=== PATIENT | female | born 1995 | race Caucasian/White ===

== ENCOUNTER 2020-11-16 17:27 | Emergency (ER) | payer BC ==
--- OUTSIDE RECORDS SUMMARY | 2020-11-16 17:29 | XMS REPORT | Continuity of Care Document ---
:1995 Author Organization [facility] t Address [address] [place] [address] Care Team Providers Name Role Phone Unavailable Unavailable Unavailable Payers Payer Name Policy Type Policy Number Effective Date Expiration Date S ource Problems This patient has no known problems. Allergies, Adverse Reactions, Alerts Allergy Allergy Status Severity Reaction(s) Onset Inactive Treating Comm ents Source Name Type Date Date Clinician No Known DA Active [facility] [place] Medications This patient has no known medications. Procedures This patient has no known procedures. Results Test Description Test Time Test Comments Results Result Comments Source HGB HCT 2019-02-03 15:58:00 Test Item Value Reference Range Interpretation Comme nts HEMOGLOBIN (test code = HGB) 8.0 g/dL 10.7-13.9 L HEMATOCRIT (test code = HCT) 26.0 % 32.1-42.1 L AG HEPATITIS B [id number] 23:03:00 Test Item Value Reference Range Interpretation Comments AG HEPATITIS B SURFACE (test code NONREACTIVE NONREACTIVE = HBSAG) IS CONSENT FORM SIGNED FOR HIV TESTING? YAB HEPATITIS C [id number] 23:03:00 Test Item Value Reference Range Interpretation Comments AB HEPATITIS C (test code = NONREACTIVE NONREACTIVE HCVAB) SIGNAL TO CUTOFF (test code = 0.10 <0.80 N CUTOFF) IS CONSENT FORM SIGNED FOR HIV TESTING? YAB [id number] 23:03:00 Test Item Value Reference Range Interpretation Comments AB TREPONEMA (test code = TREPAB) NONREACTIVE NONREACTIVE IS CONSENT FORM SIGNED FOR HIV TESTING? YAB HIV 1 23:03:00 Test Item Value Reference Range Interpretation Comments AB HIV 1 2 (test NONREACTIVE NONREACTIVE Done by Luis F Mckee code = [id number]) 4th Gen HIV Ag/Ab Combo Screen IS CONSENT FORM SIGNED FOR HIV TESTING? YAG HEPATITIS B [id number] 22:34:00 Test Item Value Reference Range Interpretation Comments AG HEPATITIS B SURFACE (test code NONREACTIVE NONREACTIVE = HBSAG) IS CONSENT FORM SIGNED FOR HIV TESTING? YAB HEPATITIS C [id number] 22:34:00 Test Item Value Reference Range Interpretation Comments AB HEPATITIS C (test code = HCVAB) NONREACTIVE SIGNAL TO CUTOFF (test code = CUTOFF) <0.80 IS CONSENT FORM SIGNED FOR HIV TESTING? YAB [id number] 22:34:00 Test Item Value Reference Range Interpretation Comments AB TREPONEMA (test code = TREPAB) NONREACTIVE NONREACTIVE IS CONSENT FORM SIGNED FOR HIV TESTING? YAB HIV 1 22:34:00 Test Item Value Reference Range Interpretation Comments AB HIV 1 2 (test code = [id number]) NONREACTIVE IS CONSENT FORM SIGNED FOR HIV TESTING? YCBC W/AUTO [id number] 21:53:00 Test Item Value Reference Range Interpretation Comments WHITE BLOOD CELL (test code = WBC) 12.4 K/mm3 6.6-12.1 H RED BLOOD CELL (test code = RBC) 3.78 M/mm3 3.45-5.01 N HEMOGLOBIN (test code = HGB) 9.8 g/dL 10.7-13.9 L HEMATOCRIT (test code = HCT) 31.1 % 32.1-42.1 L MEAN CELL VOLUME (test code = MCV) 82 fL 84.1-94.8 L MEAN CELL HGB (test code = MCH) 25.9 pg 27-35 L MEAN CELL HGB CONCETRATION (test 31.5 gm/dL 32.2-34.1 L code = MCHC) RED CELL DISTRIBUTION WIDTH (test 12.8 % 12.4-16.5 N code = RDW) PLATELET COUNT (test code = PLT) 266 K/mm3 133-385 N IMMATURE PLATELET FRACTION (test 0.0 % 0.0-10.8 N code = IPF) MEAN PLATELET VOLUME (test code = 10.3 fl 9.1-12.7 N MPV) NEUTROPHIL % (test code = NT%) 69.2 % 56.5-79.4 N LYMPHOCYTE % (test code = LY%) 19.1 % 14.3-34.3 N MONOCYTE % (test code = MO%) 8.3 % 5.1-10.4 N EOSINOPHIL % (test code = EO%) 1.0 % 0.1-3.0 N BASOPHIL % (test code = BA%) 0.5 % 0.1-1.0 N NEUTROPHIL # (test code = NT#) 8.6 K/mm3 LYMPHOCYTE # (test code = LY#) 2.4 K/mm3 MONOCYTE # (test code = MO#) 1.0 K/mm3 EOSINOPHIL # (test code = EO#) 0.13 K/mm3 BASOPHIL # (test code = BA#) 0.1 K/mm3 RBC MORPHOLOGY REQUIRED (test code NORMAL NORMAL = RBCM) PLATELET MORPHOLOGY REQUIRED (test NORMAL NORMAL code = PLTMR) PRODUCTS OF [id number] 13:14:00 RUN DATE: 12/24/17 [facility] PAGE 1 RUN TIME: 1320 Specimen Inquiry RUN USER: INTERFACE PATIENT: NESHA MOODY LOC: [facility] U #: [id number] AGE/SX: 22/ ROOM: [facility] RE/18/18REG DR: Mandi Grossman : [birth year] BED: A DIS: 12/22/17 STATUS: DIS IN TLOC: SPEC #: [id number] RECD: 12/21/17 STATUS: DOM REQ #: [id number] HOLLY: 12/21/17- SUBM DR: Mandi Grossman MD ENTERED: 12/22/17 SP TYPE: POC[ OTHR DR: ORDERED: LEVEL IV CODES: [id number] - ENDOMETRIUM, NO PROCEDURES: LEVEL IV (Incomplete) TISSUES: ENDOMETRIUM, NOS - POC CLINICAL HISTORY 22 year old, retained products of conception (kr) FINAL DIAGNOSIS Uterus, specimen labeled "retained products of conception": - no chorionic villi identified - inflamed necrotic decidual tissue with inflamed fibrotic endometrial tissue - blood clot Tissue code 1 CPT code(s): 40580 f/wpd 12/05 04/22 @ 1313 GROSS DESCRIPTION The specimen is received in a suction canister, labeled withthe patient's name and designated "retained products of conception" consists of hemorrhagic, curetted material. Inspector Final Assembly Mechanical sections are submitted and labeled A and B. Multiple additional sections are submitted labeled RE1-RE3. [facility]/evelio 12/22/17 @ 1126 MICROSCOPIC DESCRIPTION The tissue shows necrotic decidual tissue and inflamed somewhat fibrotic endometrial tissue with background of blood clot. No chorionic villi are identified. f/wpd 12/24/17 @ 1313 Signed Norbert OdenSloan 12/24/17 1314 END OF REPORT
--- NOTE | 2020-11-17 00:54 | ER ---
Nurse's Notes [facility] Name: Adelina Velez Age: 24 yrs Sex: Female : 1995 Arrival Date: 11/16/2020 Time: 17:30 Bed External Waiting [facility] MD: Diagnosis: Presentation: 11/16 18:01 Chief complaint: Patient states: sharp pain to RLQ that began yesterday afternoon. ss Coronavirus screen: Client denies travel out of the [place] in the last 14 days. Ebola Screen: Patient denies exposure to infectious person. Patient denies travel to an Ebola-affected area in the 21 days before illness onset. Initial Sepsis Screen: Does the patient meet any 2 criteria? No. Patient's initial sepsis screen is negative. Does the patient have a suspected source of infection? No. Patient's initial sepsis screen is negative. Risk Assessment: Do you want to hurt yourself or someone else? Patient reports no desire to harm self or others. Onset of symptoms was November 15, 2020. 18:01 Method Of Arrival: Ambulatory 18:01 Acuity: VLAD 3 ss KINESIOTHERAPIST: 18:02 LMP 11/02/2020 Historical: - Allergies: 18:02 No Known Allergies; ss - Home Meds: 18:02 None [Active]; ss - PMHx: 18:02 None; ss - PSHx: 18:02 D\T\C; ss - Immunization history:: Adult Immunizations up to date, Client reports receiving the 1st dose of the Covid vaccine. - Social history:: Smoking status: Patient denies any tobacco usage or history of. Vital Signs: 18:01 BP 119 / 86; Pulse 77; Resp 14; Temp 98.6(TE); Pulse Ox 99% on R/A; Weight 68.04 kg; ss Height 5 ft. 8 in. (172.72 cm); Pain 6/10; 18:01 Body Mass Index 22.81 (68.04 kg, 172.72 cm) ED Course: 17:30 Patient arrived in ED. mr 18:02 Triage completed. ss 18:02 Arm band placed on right wrist. ss Administered Medications: No medications were administered Outcome: 11/17 00:53 Patient left the ED. em Signatures: Adriana Adams Edgar RN RN em Rosie Rajput, RN RN ss
[2020-11-17 01:33] VITALS: BP 119/86; TEMP 98.6; O2SAT 99
== END 2020-11-17 00:53 | disposition left against medical advice (07) ==
LOC: ER 17:27
DX: Z53.21 Procedure and treatment not carried out due to patient leaving prior to being seen by health care provider (principal)
CPT/HCPCS: 99281